=== PATIENT | female | born 1985 | race African-American/Black ===

== ENCOUNTER 2020-05-22 22:12 | Emergency (ER) | payer OTHER ==
[~2020-05-22] VITALS: Ht 154.9 cm; Wt 56.2 kg
--- NOTE | 2020-05-22 22:25 | NUR ---
Dr. Szymanski at bedside for MSE.
[2020-05-22] MEDS ORDERED: ALBUTEROL SULFATE 2.5 MG/3 ML NEBU NEB ONE (22:30)
[2020-05-22] MEDS ORDERED: FAMOTIDINE. 20 MG/2 ML VIAL IV ONE ×2 (22:30→22:35)
[2020-05-22] MEDS ORDERED: methylPREDNISolone SOD SUCC 125 MG/2 ML VIAL IV ONE (22:30)
[2020-05-22] MEDS ORDERED: methylPREDNISolone SOD SUCC 125 MG/2 ML VIAL ONE (22:36)
--- NOTE | 2020-05-22 22:39 | NUR ---
Respiratory at bedside.
[2020-05-22] MEDS ORDERED: ALBUTEROL SULFATE 2.5 MG/3 ML NEBU ONE (22:40)
--- NOTE | 2020-05-23 01:13 | NUR ---
Patient does not wish to proceed with medical care recommended by Dr. Szymanski. Patient given information related to possible complications, up to and including , which could occur as a result of leaving the hospital at this time. Patient verbalizes understanding of risks involved due to leaving against medical advice. Patient has signed AMA form. Patient out of ER with steady gait, no acute signs of distress, VSS, all belongings taken, IV site discontinued.
[2020-05-23 01:16] VITALS: BP 122/64
== END 2020-05-23 01:17 | disposition left against medical advice (07) ==
LOC: ER 22:16
DX: T78.02XA Anaphylactic reaction due to shellfish (crustaceans), initial encounter (principal); Z53.29 Procedure and treatment not carried out because of patient's decision for other reasons
CPT/HCPCS: 94640; 96374; 96375; 99291; J2930; J3490; A4663